=== PATIENT | female | born 1990 ===

== ENCOUNTER 2016-10-16 01:52 | Inpatient (IN) | payer MEDICAID, SELFPAY ==
[2016-10-16] MEDS: Lactated Ringer's 1,000 ML IV SCH ×2 (02:30→03:15)
[2016-10-16 02:33] VITALS: BMI 28.3
[2016-10-16 02:47] LABS: HEMATOCRIT 36.3 % (34.0-47.0); MEAN CELL VOLUME 83.3 fl (81.0-99.0); MEAN CORPUSCULAR HEMOGLOBIN 27.4 pg (27.0-31.0); MEAN CORPUSCULAR HGB CONC 32.8 g/dL (33.0-37.0); RED CELL DISTRIBUTION WIDTH 14.6 % (11.5-14.5)
[2016-10-16] MEDS ORDERED: Bupivacaine HCl 0.25% PF (10 ml) Inj ONE (03:04)
[2016-10-16] MEDS ORDERED: Fentanyl/Bupivacaine HCl 250 ML EPI ONE (03:04)
[2016-10-16] MEDS ORDERED: Lactated Ringer's 1,000 ML IV SCH ×2 (04:15→06:00)
--- NOTE | 2016-10-16 06:20 | OBPN ---
Datetime: 10/16/2016 06:10 IP Progress Impression: Normal progression of labor; Reassuring heart rate IP Informed Consent Obtain: Vaginal Delivery; Risks, Benefits and Alternatives Discussed IP Progress Plan: Continue present management Pool Provider: Positive Membranes, Provider: Ruptured Contraction Comments Provider: 2-3m FHR - Baseline A Provider: 140 Presentation-Admit: Vertex IP Progress Note Comment: On rounds, she is noted to have gross pooling. She had epidural at 3:15am and feels much better. At 4am, she was noted to be 6cm dilated with bulging membranes A; Active phase of labor P: monitor labor progress NICHD Accel Fetus A IP Provider: 15X15 FHR Category Provider Fetus A: Category I NICHD Variability Prov Fetus A: Moderate 6-25bpm Dilatation, Provider: 8 Effacement, Provider: 100 Station, Provider: 0 NICHD Decel Fetus A IP Provider: None Datetime: 10/16/2016 02:53 Gestation - Est Wks by US: 40.2 Vital Signs Provider: Reviewed; Within Normal Limits
--- NOTE | 2016-10-16 06:20 | OBHP ---
Datetime: 10/16/2016 06:10 Presentation-Admit: Vertex FHR - Baseline A Provider: 140 Membranes, Provider: Ruptured Contraction Comments Provider: 2-3m Pool Provider: Positive NICHD Variability Prov Fetus A: Moderate 6-25bpm NICHD Accel Fetus A IP Provider: [id number] FHR Category Provider Fetus A: Category I NICHD Decel Fetus A IP Provider: None Dilatation, Provider: 8 Effacement, Provider: 100 Station, Provider: 0 Datetime: 10/16/2016 02:53 IP Adm Impression: Term, intrauterine ; Intact Membranes IP Adm Impression Other: Labor IP Admit Plan: Admit to unit; Initiate labor protocol Admit Comment, IP Provider: 25 y/o F @40.2w IUP, presents for increased CTXs and pelvic pain si nce 19:00 yesterday. She states pain is getting worse and she decided to come to the hosp. Denies VB, nausea, vomiting, trauma or LOF. allergies: NKDA meds: PNV OBHx: 2 at 40+(8+lbs) LMP 01/08/16. EDC 10/14/16 GBS neg. RPR/HIV, HepB, Gc/Chl all neg Rub Imm Tdap and Flu given Last US: 09/02/16: EFW 2317g. RADHA 17.3, Vertex, placenta anterior. PMHx: Denies SxhX: Denies SHx: Denies tobacco, etoh or drugs O: See above A: 25 y/o F IUP @40.2w presents for labor P: -Admit to unit -Initiate labor protocol -CBC, T_S -Anesthesiology consult for epidural -IV fluids - monitoring Case discussed with Dr Tate Rivera PGY1 OB Hospitalist oncall...I saw and examined this patient. Agree with note...latent phase of labor. .dicsussion with pt about laor, pain management, medications, delivery and MAHNDO Pelvic Type - PN: Adequate Extremities - PN: Normal Abdomen - PN: Normal Back - PN: Normal Breast - PN: Not Done Lungs - PN: Normal Heart - PN: Normal Thyroid - PN: Normal Neurologic - PN: Normal HEENT - PN: Normal General - PN: Normal Gestation - Est Wks by US: 40.2 IP Hx Assessment: The History has been Reviewed and is Current Vital Signs Provider: Reviewed; Within Normal Limits IP Indication for Induction: Not Applicable IP Chief Complaint: Uterine contractions; Maternal discomfort Genitourinary Exam: Normal Datetime: 10/16/2016 02:30 Comments, ACOG Physical Exam: VE: 4cm, 90%, -2 Bedside US: Confirmed vertex ROS: General - no fatigue HEENT: No VILLAGRAN; no visual disturbance CV: no CP; no palpitations RESP: No Cough; no SOB GI: No N/V/D : No F/U/D MS: no joint pain
--- NOTE | 2016-10-16 06:59 | OBPN ---
Datetime: 10/16/2016 06:56 IP Progress Impression: Normal progression of labor; Reassuring heart rate IP Informed Consent Obtain: Vaginal Delivery; Risks, Benefits and Alternatives Discussed IP Progress Plan: Continue present management Pool Provider: Positive Membranes, Provider: Ruptured FHR - Baseline A Provider: 140 IP Progress Note Comment: She feels some pressure FHR 140's + accel with scalp stimulation/clear fluid/ jacobs in place A: Active phase of labor anticiapte NICHD Accel Fetus A IP Provider: 15X15 FHR Category Provider Fetus A: Category I NICHD Variability Prov Fetus A: Moderate 6-25bpm Dilatation, Provider: 9 Effacement, Provider: 100 Station, Provider: 0 NICHD Decel Fetus A IP Provider: None
[2016-10-16] MEDS ORDERED: Oxytocin 30 units/LR 500ML 500 ML IV ONE (07:49)
[2016-10-16 08:12] VITALS: BP 113/60; PULSE 76; RESP 18; TEMP 99.6; O2SAT 100
[2016-10-16] MEDS ORDERED: Oxytocin 30 units/LR 500ML 500 ML IV SCH (09:00)
--- NOTE | 2016-10-16 10:21 | OBDS ---
[facility]IV[facility] PERSONNEL Delivery Doctor: Christiana Figueroa MD MATERNAL INFORMATION Provider Comments: Attending: Dr. Rachael Figueroa Resident: Dr. Pema Perez PGY1 Over intact perineum, live girl, no nuchal cord noted. Infant was placed over Mother's chest/abdomen, bulb suctioned nasopharygeally and crying spontaneously. 9/9, weight:3505 g. Placenta delivered intact, and spontaneously. Mother and Baby remained stable. EBL 200cc Pema Perez PGY1 Progress and delivered a live baby girl over an intact perineum the baby was bulb suctioned then t ransferred to maternal chest the cord was clamped and cut and 3 vessels noted cord blood was obtained since there were no vaginal lacerations patient tolerated the procedure well estimated blood loss wa s 200 mL placenta was delivered without complication. The baby had Apgars of 9 and 9, to the bowel or baby nursery LABOR SUMMARY EDC: 10/14/2016 00:00 LABOR INFORMATION Steroids Given: None MEMBRANES Membranes Rupture Method: Spontaneous Amniotic Fluid Color: Clear Amniotic Fluid Amount: Moderate VAGINAL DELIVERY Episiotomy: None Laceration Extension: N/A Laceration Type: None Laceration Repair Note: No Vaginal or perineal lacerations noted. CSECTION DELIVERY CSection Incision: N/A
[2016-10-16] MEDS: Multivitamin With Minerals Tab PO SCH (13:18)
[2016-10-17 07:59] LABS: BASO % 0.2 % (0.0-2.0); EOS # 0.3 K/uL (0.0-0.7); EOS % 1.9 % (0.0-4.0); HEMATOCRIT 31.3 % (34.0-47.0); LYMPH # 2.1 K/uL (1.0-4.3); LYMPH % 15.8 % (20.0-40.0); MEAN CELL VOLUME 83.7 fl (81.0-99.0); MEAN CORPUSCULAR HEMOGLOBIN 26.9 pg (27.0-31.0); MEAN CORPUSCULAR HGB CONC 32.1 g/dL (33.0-37.0); MEAN PLATELET VOLUME 8.1 fl (7.2-11.7); MONO # 0.6 K/uL (0.0-0.8); MONO % 4.3 % (0.0-10.0); NEUT # 10.5 K/uL (1.8-7.0); NEUT % 77.8 % (50.0-75.0); RED CELL DISTRIBUTION WIDTH 14.7 % (11.5-14.5); WHITE BLOOD COUNT 13.6 K/uL (4.8-10.8)
[2016-10-17] MEDS: Multivitamin With Minerals Tab PO SCH (08:45)
[2016-10-18] MEDS: Multivitamin With Minerals Tab PO SCH (09:41)
--- NOTE | 2016-11-13 13:22 | OBPPN ---
Datetime: 10/18/2016 06:30 PP Pain Prov: Within normal limits PP Nausea Prov: Denies PP Flatus Prov: Yes PP BM Prov: Yes PP Breasts Prov: Normal PP Heart Prov: Normal PP Lungs Prov: Normal PP Abdomen/Uterus Prov: Normal PP Lochia Prov: Normal PP Vulva/Perineum Prov: Normal PP CVA Tenderness Prov: Normal PP Extremities Prov: Normal PP C/S Incision Prov: Not Applicable PP Progress Prov: Normal PP Comments Phys Exam Prov: No acute distress. Comfortable in bed. Lungs CTA b/l. RRR S1S2. Abd: soft, uterus below umb level firm. +BS no calf tenderness Alert, oriented PP Impression Prov: Normal progression PP Plan Prov: Continue present management; Discharge PP Progress Note Prov: PPD2 Patient seen at bedside on PPD2 s/p NVD. Denies nausea, vomiting or headache. Lochia less than men ses, pain is controlled with motrin. +Flatus and + BM. Voiding with no difficulty. Ambulating with no difficulty. Tolerating PO. Denies calf pain. O:See above A: 25 y/o S/P NVD on PPD2 normal progression P: Cont Motrin PRN for pain Encourage ambulation Cont Anticipated DC today Sergio Rivera PGY1 IP PP Procedures: None Vital Signs Provider PP: Reviewed; Within Normal Limits
--- NOTE | 2016-11-13 13:22 | OBDCSUM ---
Datetime: 10/18/2016 10:47 Discharge Instructions, Provider: Routine instructions given Discharge Diagnosis, Provider: Term Delivered
== END 2016-10-18 12:10 | disposition home or self-care (01) | DRG 373 ==
LOC: H.EROB2 01:52 → H.L&D 02:42 → H.OB/GYN 12:20
PROVIDERS: ADMIT Obstetrics & Gynecology; ATTEND Obstetrics & Gynecology
PROC: 10E0XZZ Delivery of Products of Conception, External Approach (ICD-10-PCS; principal; 2016-10-16)
PROC: 4A1HXCZ Monitoring of Products of Conception, Cardiac Rate, External Approach (ICD-10-PCS; 2016-10-16)
DX: O48.0 Post-term pregnancy (principal); Z37.0 Single live birth; Z3A.40 40 weeks gestation of pregnancy